=== PATIENT | male | born 1970 | race African-American/Black ===

== ENCOUNTER 2023-12-15 12:58 | Emergency (ER) | payer OTHER ==
[~2023-12-15] VITALS: Ht 175.3 cm; Wt 100.0 kg
[2023-12-15 13:09] VITALS: O2SAT 99
[2023-12-15] MEDS ORDERED: NAPR-1176 MT (16:50)
[2023-12-15] MEDS: ACETAMINOPHEN 325MG TABLET PO ONE (17:24)
[2023-12-15 17:44] VITALS: BP 155/98; PULSE 60; RESP 18; TEMP 98.1
[2023-12-16] MEDS ORDERED: RIVA10TA MT (03:46)
[2023-12-16] MEDS ORDERED: ACET-2708 MT (03:46)
[2023-12-16] MEDS ORDERED: APIX5TAB PO (04:00)
[2023-12-16] MEDS ORDERED: APIX5TAB MT (04:00)
== END 2023-12-15 18:10 | disposition home or self-care (01) ==
LOC: ER 12:58
DX: S80.11XA Contusion of right lower leg, initial encounter (principal); I10 Essential (primary) hypertension; X58.XXXA Exposure to other specified factors, initial encounter; Y93.89 Activity, other specified; Y92.89 Other specified places as the place of occurrence of the external cause; Y99.8 Other external cause status
CPT/HCPCS: 73610; 93971; 99284